=== PATIENT | female | born 1990 | race Two or more races ===

== ENCOUNTER 2018-10-09 00:12 | Emergency (ER) | payer SELFPAY ==
[~2018-10-09] VITALS: Ht 170.2 cm; Wt 80.0 kg
--- NOTE | 2018-10-09 00:35 | NUR ---
HAS SIGNED RESTRAINT ORDER.
--- NOTE | 2018-10-09 00:58 | NUR ---
PT NOW RESTING QUIETLY. PT REMOVED FROM TWO RESTRAINTS. POC DISCUSSED. FRIEND REMAINS AT BEDSIDE. PT AND FRIEND DENY CURRENT NEEDS.
--- NOTE | 2018-10-09 01:08 | NUR ---
PT NOW SLEEPING. PT TAKEN OUT OF ALL RESTRAINTS. FRIEND AT BEDSIDE INFORMED TO USE CALL LIGHT IF PT NEEDS TO GET UP FOR ANY REASON. CALL LIGHT ON FRIENDS LAP. BED RAILS UPX2. PT REMAINS ON SPO2 AND BP MONITORING.
--- NOTE | 2018-10-09 01:26 | NUR ---
PT MOVED TO [facility] ROOM CLOSE TO NURSES STATION. FRIEND REMAINS AT BEDSIDE.
[2018-10-09 02:02] VITALS: BP 101/52
--- NOTE | 2018-10-09 02:02 | NUR ---
PT REMAINS SLEEPING AT THIS TIME. NAD. VSS. FRIEND AT BEDSIDE.
--- NOTE | 2018-10-09 02:23 | NUR ---
Report from Thierry PAUL. This RN to assume care of pt. Sleeping comfortably on gurney. RR even and unlabored. Nadn. Friend at bedside.
--- NOTE | 2018-10-09 03:35 | NUR ---
Pt amb at this time. Not steady at this time.
--- NOTE | 2018-10-09 03:56 | NUR ---
Pt amb w/ steady gait and would like to go home. Friend still at bedside. aware.
== END 2018-10-09 04:03 | disposition home or self-care (01) ==
LOC: ED 03:50
DX: F10.221 Alcohol dependence with intoxication delirium (principal); G92 Toxic encephalopathy
CPT/HCPCS: 99283